=== PATIENT | male | born 1985 | race Caucasian/White ===

== ENCOUNTER 2016-07-25 17:44 | Emergency (ER) | payer SELFPAY ==
--- NOTE | 2016-07-25 18:46 | DIAGNOSTIC IMAGING REPORT ---
PROCEDURE: XR ABD SERIES 2V ABD/1V CHEST INDICATION: ABDOMINAL PAIN TECHNIQUE: AP supine and upright views with PA view chest. COMPARISON: None. FINDINGS: ABDOMEN: There is stool throughout the colon. No evidence of free air. Surgical clips in the epigastric region. Soft tissues and osseous structures are normal. CHEST: Lungs are clear. Heart and mediastinum are normal. Thorax is normal. IMPRESSION: 1. Moderate stool throughout the colon. Consider obstipation.
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
--- NOTE | 2016-07-25 18:55 | ED ORDER SUMMARY ---
..... Patient: RITESH LINDSAY OrderSheet [facility] VisitID: [id number] [place] [address] 31y, M Registration Date/Time: 07/25/2016 ORDER SHEET Weight: 74.8 kg (stated) Allergies: Bees, Penicillins GENERAL ORDERS: Abd Series 2V Abd/1V Chest Urgent (18:01 07/25/2016 PHutchinson DO) (Ack 18:04 PWeiler ER Tech1) (18:50 MCampbell) UA-Culture if indicated Urgent (18:02 07/25/2016 PHutchinson DO) (Ack 18:04 PWeiler ER Tech1) (18:51 LSullivan R.N.) PT with INR Urgent (18:02 07/25/2016 PHutchinson DO) (Ack 18:04 PWeiler ER Tech1) (18:51 LSullivan R.N.) Cardiac Panel Stat (18:02 07/25/2016 PHsdchinson DO) (Ack 18:04 P[facility]iler ER Tech1) (18:51 LSullivan R.N.) Lipase Urgent (18:02 07/25/2016 PHutchinson DO) (Ack 18:04 PWeiler ER Tech1) (18:51 LSullivan R.N.) Amylase Urgent (18:02 07/25/2016 PHutchinson DO) (Ack 18:04 PWeiler ER Tech1) (18:51 LSullivan R.N.) BNP Urgent (18:02 07/25/2016 PHutchinson DO) (Ack 18:04 P[facility] ER Tech1) (18:51 LSullivan R.N.) Ethyl Alcohol Urgent (18:02 07/25/2016 PHutchinson DO) (Ack 18:04 [facility] ER Tech1) (18:51 LSullivan R.N.) NG Tube (lavage till clear, may pull if negative) (18:09 07/25/2016 PHutchinson DO) (19:08 LSullivan R.N.) Old Records (from [facility]) (18:07/25/2016 PHutchinson DO) (Ack 18:54 [facility] ER Tech1) (21:28 EHassan R.N.) Call (Place call to): (Dr Mendoza) (18:54 07/25/2016 [facility]) (Ack 19:15 [facility] ER Tech1) (21:28 EHassan R.N.) Type & Cross (Upper GI bleed) (anemia) Urgent (18:55 07/25/2016 [facility]) (Ack 19:14 [facility] ER Tech1) (19:27 EHassan R.N.) Call (Place call to): ([facility] hospitalist) (19:15 07/25/2016 [facility]) (Ack 19:16 [employer] ER Tech1) MEDICATION ORDERS: IV FLUIDS: IV NS with Thiamine HCl 100 mg/L: initial bolus 1000 mL (1000 mL/hr), then 500 mL/hr for X2 (NOW) (18:01 07/25/2016 [facility]) (18:49 LSullivan R.N.) Reglan IV 10 mg (NOW) (18:02 07/25/2016 [facility]) (18:49 LSullivan R.N.) Protonix IVP 40mg 40 mg (Mix in NS 10ml over 2min) (18:02 07/25/2016 [facility]) (18:50 LSullivan R.N.) ORDER SHEET NOTES: [Electronically signed by Yarely Brambila R.N. (21:28 07/25/2016)] [Electronically signed by Eulogio Last DO (09:43 07/26/2016)] [Electronically locked/signed by Yarely Brambila R.N. (21:28 07/25/2016)]
--- NOTE | 2016-07-25 18:55 | ED ORDER SUMMARY ---
..... Patient: RITESH LINDSAY OrderSheet [facility] VisitID: [id number] [place] [address] 31y, M Registration Date/Time: 07/25/2016 ORDER SHEET Weight: 74.8 kg (stated) Allergies: Bees, Penicillins GENERAL ORDERS: Abd Series 2V Abd/1V Chest Urgent (18:01 07/25/2016 PHutchinson DO) (Ack 18:04 PWeiler ER Tech1) (18:50 MCampbell) UA-Culture if indicated Urgent (18:02 07/25/2016 PHutchinson DO) (Ack 18:04 PWeiler ER Tech1) (18:51 LSullivan R.N.) PT with INR Urgent (18:02 07/25/2016 PHutchinson DO) (Ack 18:04 PWeiler ER Tech1) (18:51 LSullivan R.N.) Cardiac Panel Stat (18:02 07/25/2016 PHazchinson DO) (Ack 18:04 PWeiler ER Tech1) (18:51 LSullivan R.N.) Lipase Urgent (18:02 07/25/2016 PHutchinson DO) (Ack 18:04 PWeiler ER Tech1) (18:51 LSullivan R.N.) Amylase Urgent (18:02 07/25/2016 PHutchinson DO) (Ack 18:04 P[facility] ER Tech1) (18:51 LSullivan R.N.) BNP Urgent (18:02 07/25/2016 PHutchinson DO) (Ack 18:04 [facility] ER Tech1) (18:51 LSullivan R.N.) Ethyl Alcohol Urgent (18:02 07/25/2016 PHutchinson DO) (Ack 18:04 P[facility] ER Tech1) (18:51 LSullivan R.N.) NG Tube (lavage till clear, may pull if negative) (18:09 07/25/2016 PHutchinson DO) (19:08 LSullivan R.N.) [place] Records ([facility] (18:07/25/2016 PHutchinson DO) (Ack 18:54 [facility] ER Tech1) (21:28 EHassan R.N.) Call (Place call to): (Dr Mendoza) (18:54 07/25/2016 [facility]) (Ack 19:15 [facility] ER Tech1) (21:28 EHassan R.N.) Type & Cross (Upper GI bleed) (anemia) Urgent (18:55 07/25/2016 [facility]) (Ack 19:14 [facility] ER Tech1) (19:27 EHassan R.N.) Call (Place call to): ([facility] hospitalist) (19:15 07/25/2016 [facility]) (Ack 19:16 [facility] ER Tech1) MEDICATION ORDERS: IV FLUIDS: IV NS with Thiamine HCl 100 mg/L: initial bolus 1000 mL (1000 mL/hr), then 500 mL/hr for X2 (NOW) (18:01 07/25/2016 [facility]) (18:49 LSullivan R.N.) Reglan IV 10 mg (NOW) (18:02 07/25/2016 [facility]) (18:49 LSullivan R.N.) Protonix IVP 40mg 40 mg (Mix in NS 10ml over 2min) (18:02 07/25/2016 [facility]) (18:50 LSullivan R.N.) ORDER SHEET NOTES: [Electronically signed by Yarely Brambila R.N. (21:28 07/25/2016)] [Electronically signed by Eulogio Last DO (09:43 07/26/2016)] [Electronically locked/signed by Yarely Brambila R.N. (21:28 07/25/2016)]
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
--- NOTE | 2016-07-26 09:43 | ED MAR SUMMARY ---
..... Medication Administration Record [facility] [address], [place] [address] Patient: RITESH LINDSAY Visit ID: [id number] 31y, M Weight: 74.8 kg Height/Length: 66 in BMI: 26.6 ALLERGIES: Bees, Penicillins Given 18:44 07/25/2016 Zo Leslie R.N. Medication Administered: REGLAN [IVP] (METOCLOPRAMIDE HCL), Dose: 10 mg IVP over 2 minute(s), Site: #1 right hand. Medication Ordered: Reglan IV 10 mg (NOW). Given 18:47 07/25/2016 Zo Leslie R.N. Medication Administered: PROTONIX 40MG [IVP] (PANTOPRAZOLE SODIUM), Dose: 40 mg IVP over 4 minute(s), Site: #1 right hand. Medication Ordered: Protonix IVP 40mg 40 mg (Mix in NS 10ml over 2min). Start 18:49 07/25/2016 Zo Leslie RBayronN., Stop 19:27 07/25/2016 Yarely Brambila RBryson Medication Administered: IV NS (SALINE), Dose: IV Fluids, With: THIAMINE [IVPB] 100 mg, Rate: 1000 mL/hr, Dispensed: 1000 mL bag, Site: #1 right hand. Medication Ordered: IV NS with Thiamine HCl 100 mg/L: initial bolus 1000 mL (1000 mL/hr), then 500 mL/hr for X2 (NOW).
--- NOTE | 2016-07-26 09:43 | ED MED RECONCILIATION SUMMARY ---
Patient: RITESH LINDSAY Medication Reconciliation Report [facility] VisitID: [id number] [address] [place] [address] 31y, M Registration Date/Time: 07/25/2016 Weight: 74.8 kg Height/Length: 66 in. BMI: 26.6 ALLERGIES: Bees, Penicillins The patient's Home Medications are listed below: THE FOLLOWING MEDICATIONS NEED TO BE RECONCILED: BP pill, daily Coumadin Oral Iron Oral Lovenox Subcutaneous Protonix Oral 20 mg, daily The source(s) of the original Home Medication information: Not obtained. The following Medications were given to the patient in the Emergency Department: IV NS IV Fluids bolus 0, then 1000 mL/hr with Thiamine [IVPB] 100 mg, administered: 07/25/2016 6:49:00 PM Reglan [IVP] IVP 10 mg, administered: 07/25/2016 6:44:00 PM PROTONIX 40MG [IVP] IVP 40 mg, administered: 07/25/2016 6:47:00 PM The following Medications were prescribed to the patient: None.
--- NOTE | 2016-07-26 09:43 | ED MED RECONCILIATION SUMMARY ---
Patient: RITESH LINDSAY Medication Reconciliation Report VisitID: [id number] [address] [place] [address] 31y, M Registration Date/Time: 07/25/2016 Weight: 74.8 kg Height/Length: 66 in. BMI: 26.6 ALLERGIES: Bees, Penicillins The patient's Home Medications are listed below: THE FOLLOWING MEDICATIONS NEED TO BE RECONCILED: BP pill, daily Coumadin Oral Iron Oral Lovenox Subcutaneous Protonix Oral 20 mg, daily The source(s) of the original Home Medication information: Not obtained. The following Medications were given to the patient in the Emergency Department: IV NS IV Fluids bolus 0, then 1000 mL/hr with Thiamine [IVPB] 100 mg, administered: 07/25/2016 6:49:00 PM Reglan [IVP] IVP 10 mg, administered: 07/25/2016 6:44:00 PM PROTONIX 40MG [IVP] IVP 40 mg, administered: 07/25/2016 6:47:00 PM The following Medications were prescribed to the patient: None.
--- NOTE | 2016-07-26 09:43 | ED MAR SUMMARY ---
..... Medication Administration Record [facility] [address], [place] [address] Patient: RITESH LINDSAY Visit ID: [id number] 31y, M Weight: 74.8 kg Height/Length: 66 in BMI: 26.6 ALLERGIES: Bees, Penicillins Given 18:44 07/25/2016 Zo Leslie R.N. Medication Administered: REGLAN [IVP] (METOCLOPRAMIDE HCL), Dose: 10 mg IVP over 2 minute(s), Site: #1 right hand. Medication Ordered: Reglan IV 10 mg (NOW). Given 18:47 07/25/2016 Zo Leslie R.N. Medication Administered: PROTONIX 40MG [IVP] (PANTOPRAZOLE SODIUM), Dose: 40 mg IVP over 4 minute(s), Site: #1 right hand. Medication Ordered: Protonix IVP 40mg 40 mg (Mix in NS 10ml over 2min). Start 18:49 07/25/2016 Zo Leslie RBayronN., Stop 19:27 07/25/2016 Yarely Brambila RBryson Medication Administered: IV NS (SALINE), Dose: IV Fluids, With: THIAMINE [IVPB] 100 mg, Rate: 1000 mL/hr, Dispensed: 1000 mL bag, Site: #1 right hand. Medication Ordered: IV NS with Thiamine HCl 100 mg/L: initial bolus 1000 mL (1000 mL/hr), then 500 mL/hr for X2 (NOW).
--- NOTE | 2016-07-26 09:43 | ED DISCHARGE INSTRUCTIONS ---
Patient: RITESH LINDSAY General Instructions [facility] VisitID: [id number] [address] [place] [address] 31y, M Registration Date/Time: 07/25/2016 Major GI bleed with hematemesis. Severe chronic renal failure- end stage disease. Moderate acute and chronic anemia associated with acute blood loss and chronic renal disease. Hyperkalemia. Mild hypermagnesemia. (Electronically signed by Eulogio Last DO 07/26/2016 9:43)
--- NOTE | 2016-07-26 09:43 | ED DISCHARGE INSTRUCTIONS ---
Patient: RITESH LINDSAY General Instructions [facility] VisitID: [id number] [address] [place] [address] 31y, M Registration Date/Time: 07/25/2016 Major GI bleed with hematemesis. Severe chronic renal failure- end stage disease. Moderate acute and chronic anemia associated with acute blood loss and chronic renal disease. Hyperkalemia. Mild hypermagnesemia. (Electronically signed by Eulogio Last DO 07/26/2016 9:43)
== END 2016-07-25 21:26 | disposition short-term general hospital (02) ==
LOC: ED SRH 17:44
DX: K92.2 Gastrointestinal hemorrhage, unspecified (principal); K92.0 Hematemesis; N18.6 End stage renal disease; D63.1 Anemia in chronic kidney disease; D50.0 Iron deficiency anemia secondary to blood loss (chronic); E87.5 Hyperkalemia; E83.41 Hypermagnesemia; I26.99 Other pulmonary embolism without acute cor pulmonale; Z88.0 Allergy status to penicillin; Z79.899 Other long term (current) drug therapy; Z79.01 Long term (current) use of anticoagulants
CPT/HCPCS: 90001; 90004; 90074; 90100; 90155; 90616; 91004; 91320; 91544; 92010; 92235; 92530; 92610; 92720; 94060; 95059